=== PATIENT | female | born 1995 | race African-American/Black ===

== ENCOUNTER 2016-10-09 12:13 | Emergency (ER) | payer SELFPAY ==
[2016-10-09] MEDS ORDERED: ALU/MAG/SIM 30 ML UDC ONE (15:47)
[2016-10-09] MEDS ORDERED: ZOFRAN ODT 8 MG TAB ONE (15:47)
[2016-10-09] MEDS ORDERED: LIDOCAINE 2% VISC 15 ML UDC ONE (15:48)
== END 2016-10-09 16:37 | disposition home or self-care (01) ==
LOC: ER 12:13
DX: R10.13 Epigastric pain (principal)
CPT/HCPCS: 36415; 74022; 80053; 81003; 83690; 84703; 85025